=== PATIENT | female | born 1975 | race Caucasian/White ===

== ENCOUNTER 2019-04-01 17:23 | Emergency (ER) | payer OTHER ==
[~2019-04-01] VITALS: Ht 170.2 cm; Wt 73.5 kg
[2019-04-01 17:31] VITALS: BP 132/93
[2019-04-01] MEDS ORDERED: ALBUTEROL/IPRATROPIUM 2.5MG/0.5MG, 3 ML ONE (18:13)
--- NOTE | 2019-04-01 18:26 | NUR ---
rt at bedside.
[2019-04-01] MEDS ORDERED: ALBUTEROL/IPRATROPIUM 2.5MG/0.5MG, 3 ML NPPB ONE (18:30)
== END 2019-04-01 19:12 | disposition home or self-care (01) ==
LOC: ED 19:06
DX: J20.8 Acute bronchitis due to other specified organisms (principal)
CPT/HCPCS: 71046; 93005; 94640; 99283; J7620